=== PATIENT | female | born 1990 | race Caucasian/White ===

== ENCOUNTER 2025-02-06 13:10 | Outpatient (REF) | payer OTHER, SELFPAY ==
[2025-02-06 13:50] LABS: Hematocrit 40.9 % (37.0-47.0); Hemoglobin 13.7 g/dl (12.0-16.0); Imm Gran Abs Auto 0.05 X10*3/uL (0.00-0.03); Imm Gran Pct Auto 0.5 % (0.0-0.4); Lymphocytes Absolute Auto 1.9 X10*3/uL (1.2-4.9); MANUAL DIFF FLAG SCAN; Mean Corpuscular HGB Conc 33.5 g/dl (31.0-35.0); Mean Corpuscular Hemoglobin 30.6 pg (27.0-33.0); Mean Corpuscular Volume 91.5 fL (80.0-98.0); NRBC Abs Auto 0.000 X10*3/uL (0.0-0.012); NRBC Pct Auto 0.0 /100WBC (0.0-0.2); PLT CLUMP 1; Red Blood Count 4.47 X10*6/uL (4.20-5.50); SCAN SMEAR FLAG 1
[2025-02-06 13:59] LABS: INTERNATIONAL NORM RATIO 1.0 (0.9-1.1); Prothrombin Time 12.8 SEC (11.2-13.5)
[2025-02-06 14:02] LABS: Partial Thromboplastin Time 31.9 SEC (26.7-34.1)
[2025-02-06 14:04] LABS: Hemoglobin A1C 67.6742 umol/L
[2025-02-06 14:21] LABS: Alanine Aminotransferase 22 U/L (0-31); Albumin Level 5.0 g/dL (3.5-5.0); Alkaline Phosphatase 75 U/L (39-117); Anion Gap 15 (12-20); Aspartate Amino Transferase 21 U/L (5-31); Blood Urea Nitrogen 6 mg/dL (9-16); Calcium 9.2 mg/dL (8.4-10.2); Carbon Dioxide 18 mmol/L (22-29); Chloride 110 mmol/L (96-108); Cholesterol 200 mg/dL (<200); Estimated Glomerular Filt Rate > 60; HDL Cholesterol 53 mg/dL (>40); Iron 82 mcg/dL (30-160); Magnesium 2.1 mg/dL (1.6-2.6); Percent Iron Saturation 28 % (15-50); Potassium 3.9 mmol/L (3.3-5.1); Sodium 139 mmol/L (135-145); Total Iron Binding Capacity 294 mcg/dL (228-428); Total Protein 7.6 g/dL (6.5-8.0); Triglycerides 79 mg/dL (<150); Unsaturated Iron Binding 212 ug/dL
[2025-02-06 14:28] LABS: Platelet Count 335 X10*3/uL (160-400); White Blood Count 10.6 X10*3/uL (4.8-10.8)
[2025-02-06 14:30] LABS: Vitamin B12 439 pg/mL (200-900)
[2025-02-06 14:31] LABS: Ferritin 86 ng/mL (10-122)
== END 2025-02-06 13:11 | disposition home or self-care (01) ==
LOC: HO.LAB 13:10
PROVIDERS: PCP Internal Medicine; Visit Provider Internal Medicine
DX: N64.59 Other signs and symptoms in breast (principal); N93.9 Abnormal uterine and vaginal bleeding, unspecified; N80.9 Endometriosis, unspecified; R23.3 Spontaneous ecchymoses
CPT/HCPCS: 36415; 80053; 80061; 82180; 82306; 82607; 82728; 83036; 83540; 83735; 84146; 84443; 85025; 85610; 85730

== ENCOUNTER 2025-02-08 10:47 | Outpatient (REF) | payer OTHER, SELFPAY ==
--- NOTE | ~2025-02-08 | US_ITS ---
EXAMINATION: US PELVIS CLINICAL INFORMATION: N90 3.. Normal uterine and vaginal bleeding, unspecified COMPARISON: None available. TECHNIQUE: Ultrasound of the pelvis is performed using both transabdominal and transvaginal transducers along with Doppler. Transvaginal imaging is performed due to inadequate visualization transabdominally. FINDINGS: Uterus: The uterus is in retroversion flexion and measures 7 x 3 x 5 cm. Volume: 62 cc. The double wall endometrial thickness is 5 mm. Heterogeneous myometrium without discrete uterine fibroid. Trace of fluid in the endocervical canal. No gross solid or cystic lesions in the cervix. Adnexa: Ovaries are identified with flow on color Doppler interrogation.. Scattered follicles throughout the ovaries. No gross solid or cystic lesion. No gross free fluid in the cul-de-sac. Right ovary measures 2 x 1 x 1 cm. Volume: 1 cc. Left ovary measures 3 x 1 x 1 cm. Volume: 2 cc. US/US pelvic and transvaginal IMPRESSION: Uterus is in retroversion flexion position. No ovarian torsion. No discrete solid or cystic lesion, ovaries. 5 mm endometrial stripe. Electronically signed by: Sterling Cooper MD 02/08/2025 12:04 PM EST
== END 2025-02-08 10:48 | disposition home or self-care (01) ==
LOC: HO.US 10:47
PROVIDERS: PCP Internal Medicine; Visit Provider Internal Medicine
DX: N93.9 Abnormal uterine and vaginal bleeding, unspecified (principal); N80.9 Endometriosis, unspecified
CPT/HCPCS: 76830; 76856

== ENCOUNTER → 2025-02-08 10:50 | Outpatient (BNV) | payer OTHER, SELFPAY | PROVIDERS: PCP Internal Medicine; Visit Provider Radiology Diagnostic Radiology | DX: N93.9 Abnormal uterine and vaginal bleeding, unspecified (principal) | CPT/HCPCS: 76830; 76856 ==

== ENCOUNTER 2025-03-06 09:28 | Outpatient (AMB) | payer OTHER, SELFPAY ==
--- NOTE | 2025-03-06 09:37 | MHC.OFFVIS ---
Vital Signs 03/06/25 09:41 Height 5 ft 7 in Weight 157 lb BMI 24.6 BP 122/86 Intake Visit Reasons: Endometriosis /AUB [employer] Friction Required: No Information Interpreted: non-clinical & clinical Allergies No Known Allergies Allergy (Verified 03/06/25 09:42) Is last menstrual period known: Yes Last menstrual period: 01/01/25 HPI Comments Details: Presenting complaining of irregular menstrual cycle on continuous norethindrone, history of endometriosis when complaining of pelvic pain on and off and left breast nipple bloody discharge, bilateral diagnostic mammogram and left breast ultrasound ordered by PCP and scheduled in few days 02/06/2025 H&H 13.7/40.9, TSH, prolactin within normal 02/08/2025 pelvic ultrasound showed the following: IMPRESSION: Uterus is in retroversion flexion position. No ovarian torsion. No discrete solid or cystic lesion, ovaries. 5 mm endometrial stripe. [facility] Medical History (Updated 03/06/25 @ 10:09 by Alexx Ruby MD) Routine medical exam RUQ pain Easy bruising Bleeding from breast Vaginal bleeding Endometriosis Surgical History (Updated 03/06/25 @ 10:08 by Alexx Ruby MD) H/O partial cystectomy H/O toe surgery Hx of tonsillectomy Family History Brother Diabetes mellitus HTN (hypertension) Father Diabetes mellitus Mother Coronary artery disease Fatty liver HTN (hypertension) Paternal Aunt Breast cancer Social History Household Members: Family Housing: House Alcohol intake: never Patient Tobacco Use Status: Never used Tobacco e-Cigarette/Vaping Use: Never Used Use of substances other than those prescribed or required for medical reasons: No service: No Current occupational status: unemployed Sexually active: No Sexual orientation: Straight/Heterosexual Gender identity: Female Female Reproductive History Menstrual Age of Menarche: 13 Duration of menses: <3 days Date of last menstrual period: 01/01/25 Total pregnancies: 0 Review of Systems Const All systems reviewed & are unremarkable except as noted in HPI and below Card Reports as per HPI Resp Reports as per HPI GI Reports as per HPI and Reports no additional complaints Reports as per HPI Physical Exam Vital Signs: Last Vital Signs BP 122/86 03/06/25 09:41 BMI result Body Mass Index 24.6 Const General: cooperative, healthy appearing and comfortable Chest Chest palpation & inspection: normal inspection of the chest and normal palpation of entire chest wall Breast/axilla inspection: normal inspection of the breasts and normal inspection of the axillae Breast/axilla palpation: normal palpation of the breasts, normal palpation of the axillae and no axillary lymphadenopathy Resp Effort & Inspection: normal respiratory effort Auscultation: clear to auscultation bilaterally Percussion: percussion normal Cardio Palpation: normal PMI Rate: regular rate Rhythm: regular rhythm Heart sounds: no murmurs and no rubs Peripheral pulses: Peripheral pulses 2+ throughout GI Inspection: Yes normal to inspection Palpation (GI): Soft to palpation, nontender, no guarding, not rigid and No hepatosplenomegaly present Percussion: Yes normal to percussion Auscultation: normal bowel sounds Rectal Exam - Female: deferred General: Yes bladder normal to palpation External Female Exam: No lesion Speculum Exam - Vagina: normal appearance of the vagina, normal palpation, normal vaginal discharge and not erythematous Speculum Exam - Cervix: normal appearance of the cervix and normal palpation Bimanual exam- vagina & uterus: normal bimanual exam, normal palpation, uterine size normal, bladder normal to palpation, consistency normal and normal palpation Bimanual Exam- Adnexa, other: normal adnexae, no masses and no tenderness Results AMB Test Urine AMB Test Urine Negative Last Edit by Ana Gutierrez CMA on 03/06/25 09:49 Results Reviewed Results Reviewed: Laboratory Last Values Tst Clinic Negative 03/06/25 09:49 Assessment & Plan Assessment & Plan (1) Abnormal uterine bleeding (AUB): Code(s): N93.9 - Abnormal uterine and vaginal bleeding, unspecified Category: Medical Plan: GC/CT with Co testing done, instructions given to patient to schedule an appointment for endometrial biopsy to rule out endometrial pathology including endometrial hyperplasia and/or malignancy Instructions given the patient to discontinue norethindrone till breast mammograms ultrasound consult is negative (2) Endometriosis: Comment: also had surgery about 2015 at [facility] for stage III endometriosis Code(s): N80.9 - Endometriosis, unspecified Category: Medical Plan: Norethindrone to be discontinued if EMB is negative breast is cleared will consider continuous control pills (3) Bloody discharge from left nipple: Code(s): N64.52 - Nipple discharge Category: Medical Plan: Surgical consult placed Orders: Orders AMB HCG Urine Test Today Z32.02 - Encounter for test, result negative Referrals General Surgery Referral N64.52 - Nipple discharge Coding Level of Care Code New Pt Level 3 (91649) Diagnoses Abnormal uterine bleeding (AUB) N93.9 Endometriosis N80.9 Bloody discharge from left nipple N64.52
[2025-03-06 09:41] VITALS: BP 122/86; BMI 24.6
== END 2025-03-06 10:29 | disposition home or self-care (01) ==
LOC: HO.HWS 09:28
PROVIDERS: PCP Internal Medicine; Visit Provider Obstetrics & Gynecology
DX: N93.9 Abnormal uterine and vaginal bleeding, unspecified (principal); N80.9 Endometriosis, unspecified; N64.52 Nipple discharge; Z32.02 Encounter for pregnancy test, result negative
CPT/HCPCS: 99203

== ENCOUNTER 2025-03-06 09:28 | Outpatient (REF) | payer OTHER, SELFPAY ==
[2025-03-06 16:55] LABS: CT PCR NOT DETECTED (Not Detect.); NG PCR NOT DETECTED (Not Detect.)
== END 2025-03-06 09:29 | disposition home or self-care (01) ==
LOC: HO.LNP 09:28
PROVIDERS: PCP Internal Medicine; Visit Provider Obstetrics & Gynecology
DX: N93.9 Abnormal uterine and vaginal bleeding, unspecified (principal); N80.9 Endometriosis, unspecified; N64.52 Nipple discharge; Z20.2 Contact with and (suspected) exposure to infections with a predominantly sexual mode of transmission
CPT/HCPCS: 81025; 87491; 87591; 87626; 88175; 99202